=== PATIENT | male | born 1995 | race Two or more races ===

== ENCOUNTER 2024-12-25 17:01 | Inpatient (IN) | payer BC, MEDICAID ==
[~2024-12-25] VITALS: Ht 182.9 cm; Wt 121.4 kg
--- NOTE | 2024-12-25 17:48 | DVH ---
CHEST RADIOGRAPH Indication: chest pain Technique: XY CHEST PORTABLE Comparison: None FINDINGS: The cardiac silhouette is unremarkable. The lungs demonstrate right basilar airspace opacities. The pulmonary vasculature is unremarkable. There is no pleural effusion. There is no pneumothorax. IMPRESSION: Right basilar airspace opacification.
[2024-12-25 17:51] LABS: Hematocrit 48.9 % (41.0-53.0); Hemoglobin 16.7 g/dL (13.5-17.5); Mean Corpuscular Hemoglobin 29.3 pg (28.0-32.0); Mean Corpuscular Volume 86.0 fL (80.0-100.0); Nucleated Red Blood Cells % 0.1 %
[2024-12-25 18:03] LABS: Chloride 100 mmol/L (98-107); Potassium 4.1 mmol/L (3.5-5.1); Sodium 140 mmol/L (136-145)
[2024-12-25 18:04] LABS: Anion Gap 9 (5-15); Carbon Dioxide 31 mmol/L (20-31)
[2024-12-25 18:05] LABS: Calcium 9.8 mg/dL (8.7-10.4)
[2024-12-25 18:09] LABS: BUN/Creatinine Ratio 10.9 (10.0-20.0); Blood Urea Nitrogen 13 mg/dL (9-23); Glucose 98 mg/dL (74-106)
--- NOTE | 2024-12-25 18:13 | ED.PDOC ---
History of Present Illness HPI Comments 29-year-old male presents to the ER with a chief complaint of chest pain. Patient reports on having had left-sided chest pain which started yesterday which was small but worsened this morning at work. Denies any other symptoms at this time. Chief Complaint: Chest Pain Time Seen by MD: 17:42 Allergies: Coded Allergies: NO KNOWN ALLERGIES (Unverified , 12/25/24) Information Source: Patient Mode of Arrival: Ambulatory Severity: Moderate Timing: Hours Duration: Since onset, Hours Prehospital treatment: None Past Medical History PAST MEDICAL HISTORY: Denies Surgical History: Denies all surgeries Family History Family History: Reviewed,noncontributory to illness, Unknown Social History Smoker: Non-Smoker Alcohol: Denies ETOH Use Drugs: Denies Drug Use Lives In: Home Constitutional: denies: chills, diaphoresis, fatigue, fever, malaise, sweats, weakness, others EENTM: denies: blurred vision, double vision, ear bleeding, ear discharge, ear drainage, ear pain, ear ringing, eye pain, eye redness, hearing loss, mouth pain, mouth swelling, nasal discharge, nose bleeding, nose congestion, nose pain, photophobia, tearing, throat pain, throat swelling, voice changes, others Respiratory: denies: cough, hemoptysis, orthopnea, SOB at rest, shortness of breath, SOB with excertion, stridor, wheezing, others Cardiovascular: reports: chest pain; denies: dizzy spells, diaphoresis, Dyspnea on exertion, edema, irregular heart beat, left arm pain, lightheadedness, p alpitations, PND, syncope, others Gastrointestinal: denies: abdomen distended, abdominal pain, blood streaked bowels, constipated, diarrhea, dysphagia, difficulty swallowing, hematemesis, melena, nausea, poor appetite, poor fluid intake, rectal bleeding, rectal pain, vomiting, others Genitourinary: denies: burning, dysuria, flank pain, frequency, hematuria, incontinence, penile discharge, penile sore, pain, testicle pain, testicle swelling, urgency, others Neurological: denies: dizziness, fainting, headache, left sided numbness, left sided weakness, numbness, paresthesia, pre-existing deficit, right sided numbness, right sided weakness, seizure, speech problems, tingling, tremors, weakness, others Musculoskeletal: denies: back pain, gout, joint pain, joint swelling, muscle pain, muscle stiffness, neck pain, others Integumetry: denies: bruises, change in color, change in hair/nails, dryness, laceration, lesions, lumps, rash, wounds, others Allergic/Immunocompromised: denies: Difficulty Healing, Frequent Infections, Hives, Itching, others Hematologic/Lymphatic: denies: anemia, blood clots, easy bleeding, easy b ruising, swollen glands, others Endocrine: denies: excessive hunger, excessive sweating, excessive thirst, excessive urination, flushing, intolerance to cold, intolerance to heat, unexplained weight gain, unexplained weight loss, others Psychiatric: denies: anxiety, bipolar disorder, depression, hopeless, panic disorder, schizophrenia, sleepless, suicidal, others All Other Systems: Reviewed and Negative Physical Exam General Appearance: No Apparent Distress, Normal HEENT: Normal ENT Inspection, Pharynx Normal, TMs Normal Neck: Full Range of Motion, Non-Tender, Normal, Normal Inspection Respiratory: Chest Non-Tender, Lungs Clear, No Accessory Muscle Use, No Respiratory Distress, Normal Breath Sounds Cardiovascular: No Edema, No JVD, No Murmur, No Gallop, Normal Peripheral Pulses, Regular Rate/Rhythm Breast Exam: Deferred Gastrointestinal: No Organomegaly, Non Tender, No Pulsatile Mass, Normal Bowel Sounds, Soft Genitalia: Deferred Pelvic: Deferred Rectal: Deferred Extremities: No calf tenderness, Normal capillary refill, Normal inspection, Normal range of motion, Non-tender, No pedal edema Musculoskeletal : Apperance: Normal 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 Was a procedure done?: No EKG EKG : Pulse Rate (adult): 94 [place]: Normal Cardiac Rhythm: NSR Block: None Hypertrophy: None ST: Normal Differential Dx Considerations may include: ACS, doubt abnormalities, costochondritis, pericarditis X-Ray, Labs, Meds, VS Vital Signs Date Time Temp Pulse Resp B/P (MAP) Pulse Ox O2 Delivery O2 Flow Rate FiO2 12/25/24 18:13 94 12/25/24 17:29 94 12/25/24 17:09 81 12/25/24 17:02 97.0 86 15 153/104 96 97.0 Lab Test 12/25/24 18:29 12/25/24 17:36 Range/Units Troponin I High Sensitivity Pending 13 </=54 ng/L White Blood Count 7.4 4.4-10.8 10^3/uL Red Blood Count 5.69 4.5-5.90 10^6/uL Hemoglobin 16.7 13.5-17.5 g/dL Hematocrit 48.9 41.0-53.0 % Mean Corpuscular Volume 86.0 80.0-100.0 fL Mean Corpuscular Hemoglobin 29.3 28.0-32.0 pg Mean Corpuscular Hemoglobin Concent 34.1 32.0-36.0 g/dL Red Cell Distribution Width 14.0 11.8-14.3 % Platelet Count 309 140-450 10^3/uL Mean Platelet Volume 7.4 6.9-10.8 fL Neutrophils (%) (Auto) 57.2 37.0-80.0 % Lymphocytes (%) (Auto) 30.1 10.0-50.0 % Monocytes (%) (Auto) 7.6 0.0-12.0 % Eosinophils (%) (Auto) 4.5 0.0-7.0 % Basophils (%) (Auto) 0.6 0.0-2.0 % Neutrophils # (Auto) 4.2 1.6-8.6 10 ^3/uL Lymphocytes # (Auto) 2.2 0.4-5.4 10 ^3/uL Monocytes # (Auto) 0.6 0-1.3 10 ^3/uL Eosinophils # (Auto) 0.3 0-0.8 10 ^3/uL Basophils # (Auto) 0 0-0.2 10 ^3/uL Nucleated Red Blood Cells 0.1 % Sodium Level 140 136-145 mmol/L Potassium Level 4.1 3.5-5.1 mmol/L Chloride Level 100 98-107 mmol/L Carbon Dioxide Level 31 20-31 mmol/L Anion Gap 9 5-15 Blood Urea Nitrogen 13 9-23 mg/dL Creatinine 1.19 0.700-1.30 mg/dL Glomerular Filtration Rate Calc 86 >90 mL/min BUN/Creatinine Ratio 10.9 10.0-20.0 Serum Glucose 98 74-106 mg/dL Calcium Level 9.8 8.7-10.4 mg/dL Images Reviewed?: Images reviewed and evaluated by me Time of 1ST Reevaluation: 18:12 Reevaluation 1ST: Unchanged Patient Education/Counseling: Diagnosis, Treatment, Prognosis Family Education/Counseling: No Family Present SEPSIS Sepsis Screen Date sepsis recognized/suspect: Dec 25, 2024 Time Sepsis recognized/suspect: 1703 Recent Procedure: No On Antibiotic Therapy: No Respiratory Rate >20: No Heart Rate >90: No Temp<36 C (96.8 F) or >38.3 C: No SBP <90 or MAP <65 mmHG: No New Acute Mental Status Change: No Is the patient on CPAP, BIPAP,: No Physician Orders Troponin-I Hs (12/25/24 18:05) Troponin-I Hs (12/25/24 20:05) Electrocardigram (12/25/24 18:05) Electrocardigram (12/25/24 20:05) Chest Portable (12/25/24 17:13) Vital Signs Date Time Temp Pulse Resp B/P (MAP) Pulse Ox O2 Delivery O2 Flow Rate FiO2 12/25/24 18:13 94 12/25/24 17:29 94 12/25/24 17:09 81 12/25/24 17:02 97.0 86 15 153/104 96 97.0 Laboratory Tests Test 12/25/24 17:36 White Blood Count 7.4 10^3/uL (4.4-10.8) Departure 1 Departure Time of Disposition: 18:51 (Patient with intractable chest pain. EKG some abnormalities. Troponin was patient is not septic. We will empirically give patient fluids and antibiotics and admit patient for further cardiac workup) Impression: Primary Impression: Pneumonia Additional Impression: Acute chest pain Disposition: ADMITTED INPATIENT Admit to: [facility] Condition: Guarded Critical Care Note Critical Care Time?: No Stability Stability form required: No Heart Score Heart Score: Heart Score Response (Comments) Value History Moderate Suspicious [address]-Deviation 2 Age <45 0 Risk Factors No known risk factors 0 Troponin Normal limit 0 Total 3 I personally scribed for JAYSHREE GANNON MD ([email or web address]) on 12/25/24 at 18:13. Electronically submitted by Eddie Montana ([email or web address]). JAYSHREE GANNON MD Dec 25, 2024 18:13
--- NOTE | 2024-12-25 18:36 | ECG ---
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
--- NOTE | 2024-12-25 19:09 | ECG ---
[facility] Test Date: 2024-12-25 Test Time: 17:09:59 Pat Name: KATERYNA LAU Department: ED Room: [address] [place] [address] Gender: M Inspector Scales: TRES : 1995 Requested By: JAYSHREE GANNON Order Number: [id number] Reading MD: Daniele Guevara Measurements Intervals [place] Rate: 81 P: 138 MT: 161 QRS: 146 QRSD: 100 T: -17 QT: 375 QTc: 436 Interpretive Statements Right and left arm electrode reversal, interpretation assumes no reversal Sinus or ectopic atrial rhythm Probable left atrial enlargement Inferior infarct, age indeterminate Lateral infarct, acute Borderline ST elevation, anterior leads Electronically Signed On 12-26-2024 11:45:28 PST by Daniele Guevara Please click the below link to view image of tracing.
--- NOTE | 2024-12-25 19:59 | ECG ---
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
[2024-12-25] MEDS ORDERED: MORPHINE SULFATE INJ 2 MG/ml SYRG IV PRN (20:15)
[2024-12-25] MEDS ORDERED: NITROGLYCERIN 0.4 MG SL TAB SL PRN (20:15)
[2024-12-25] MEDS ORDERED: ACETAMINOPHEN 325 MG TAB PO PRN (20:15)
[2024-12-25] MEDS ORDERED: HYDROcodone-ACET 5/325MG TAB PO PRN (20:15)
[2024-12-25] MEDS ORDERED: TEMAZEPAM 15 MG CAP PO PRN (20:15)
[2024-12-25] MEDS ORDERED: DOCUSATE SOD 100 MG CAP PO PRN (20:15)
[2024-12-25] MEDS ORDERED: ONDANSETRON HCL 4 MG/2 ML VIAL IV PRN (20:15)
--- NOTE | 2024-12-25 20:15 | DVHHP2 ---
Admitting Diagnosis: Chest pain History of Present Illness 29 yo male patient c/o left sided chest pain that has been gradually worsening. Patient denies any other symptoms. While in the emergency department the patient was evaluated by the provider, As per provider: Labs, vital signs, and imagining monitored. Patient will be admitted for further evaluation and treatment. I discussed admission with the patient/family and is in agreement to treatment plan. Allergies: Coded Allergies: NO KNOWN ALLERGIES (Unverified , 12/25/24) Home Meds Reported Medications Acetaminophen (Acetaminophen) 325 Mg Tab, 500 MG PO DAILY PRN for MILD PAIN for 30 Days, MG 0 Refills 12/25/24 Cetirizine Hcl (Zyrtec Allergy) 10 Mg Cap, 10 MG PO, CAP 12/25/24 Current Medications Current Medications Medications (Trade) Dose Ordered Sig/Cayden Route PRN Reason Start Time Stop Time Status Last Admin Enoxaparin Sodium (Lovenox) 40 mg DAILY SC 12/26/24 10:00 Pantoprazole Sodium (Protonix) 40 mg DAILY IV 12/26/24 10:00 12/26/24 10:06 Azithromycin (Zithromax Suspension) 500 mg DAILY GT 12/26/24 10:00 12/26/24 14:40 DC Albuterol (Ventolin Medneb) 2.5 mg Q4HPRN PRN NEB SHORTNESS OF BREATH 12/26/24 07:15 Ipratropium [place] (Atrovent Medneb) 0.5 mg Q4HPRN PRN NEB SHORTNESS OF BREATH 12/26/24 07:15 Azithromycin (Zithromax Suspension) 500 mg DAILY PO 12/26/24 14:45 Review of Systems Constitutional: denies chills, denies fever, denies malaise Eyes: denies eye pain, denies vision change ENT: denies ear pain, denies headache, denies nasal congestion, denies painful swallowing, denies voice change Cardiovascular: denies chest pain, denies edema, denies orthopnea, denies palpitations, denies paroxysmal nocturnal dyspnea Respiratory: denies cough, denies shortness of breath Gastrointestinal: denies constipation, denies diarrhea, denies nausea, denies vomiting Genitourinary: denies dysuria, denies frequent urination, denies urethral discharge Musculoskeletal: denies back pain, denies joint pain, denies muscle pain Skin: denies bruising, denies itching, denies rash Neurological: denies focal weakness, denies headache, denies sensory changes Psychiatric: denies anxiety, denies depression Endocrine: denies polydipsia, denies polyuria Hematologic/Lymphatic: denies easy bleeding, denies easy bruising, denies enlarged lymph nodes Allergic/Immunologic: denies allergy, denies hives Vital Signs Vital Signs Date Time Temp Pulse Resp B/P (MAP) Pulse Ox O2 Delivery O2 Flow Rate FiO2 12/26/24 21:21 97 Room Air 0.0 12/26/24 21:21 21 12/26/24 20:53 96 18 128/87 12/26/24 20:44 97.9 97.9 Physical Exam General Appearance: alert, no distress HEENT: EOMI, PERRLA, normal external inspect of ears, no icterus, no nasal drainage Neck: no carotid bruit, no jugular venous distention (JVD), no lymphadenopathy Chest: normal thorax Respiratory: clear to auscultation, normal air movement Cardiovascular: regular rate and rhythm, no diastolic murmur, no jugular venous distention (JVD), no rub, no systolic murmur Abdominal: soft, no hepatomegaly, no mass, no splenomegaly, no tenderness Genitourinary: grossly normal external Musculoskeletal: no joint tenderness, no swelling Extremities: normal pulses, no calf tenderness, no clubbing, no cyanosis, no edema Skin: no bruising, no jaundice, no rash Neurological: alert, No focal deficit SEPSIS Sepsis Screen Date sepsis recognized/suspect: Dec 25, 2024 Time Sepsis recognized/suspect: 1703 Recent Procedure: No On Antibiotic Therapy: No Respiratory Rate >20: No Heart Rate >90: No Temp<36 C (96.8 F) or >38.3 C: No SBP <90 or MAP <65 mmHG: No New Acute Mental Status Change: No Is the patient on CPAP, BIPAP,: No Physician Orders Electrocardigram (12/25/24 17:05) Electrocardigram (12/25/24 18:05) Electrocardigram (12/25/24 20:05) Chest Portable (12/25/24 17:13) Blood Culture (12/25/24 18:50) Admit (12/25/24 20:12) Code Status (12/25/24 20:12) Oxygen Per Hour (12/25/24 20:12) Hydrocodone-Acet 5/325mg Tab ([place] 5/32 (12/25/24 20:15) Temazepam (Restoril) (12/25/24 20:15) Ondansetron Hcl (Zofran) (12/25/24 20:15) Docusate Sodium Capsule (Colace Capsule) (12/25/24 20:15) Enoxaparin Sodium (Lovenox) (12/26/24 10:00) Cardiac Diet-2gna,Lofat,Lochol (12/26/24 Breakfast) Condition: Fair (12/25/24 20:12) Acetaminophen Tablet (Tylenol Tablet) (12/25/24 20:15) Morphine Sulfate Injection (12/25/24 20:15) Sequential Compression Device (12/25/24 ) *Consult Dr. Rajesh Bennett (12/25/24 20:12) Pantoprazole (Protonix) (12/26/24 10:00) Nitroglycerin Sublingual (Ntrostat Subli (12/25/24 20:15) Morphine Sulfate Injection (12/25/24 20:15) Stat Ekg For Chest Pain (12/25/24 20:12) Notify Md Of Changes From Base (12/25/24 20:12) Kitchen Hand For 24 Hours (12/25/24 20:12) Emergency Dysrhythmia Protocol (12/25/24 20:12) Rhythm Strips Once Every Shift (12/25/24 20:12) Oxygen By Nasal Cannula (12/25/24 20:12) Drug Screen (12/26/24 07:15) Albuterol Medneb (Ventolin Medneb) (12/26/24 07:15) Ipratropium Medneb (Atrovent Medneb) (12/26/24 07:15) Echo 2d Mode Cardiac Dop (12/26/24 20:12) Azithromycin Suspension (Zithromax Suspe (12/26/24 14:45) Vital Signs Date Time Temp Pulse Resp B/P (MAP) Pulse Ox O2 Delivery O2 Flow Rate FiO2 12/26/24 21:21 97 Room Air 0.0 12/26/24 21:21 97 Room Air* 0 21 12/26/24 20:53 96 18 128/87 12/26/24 20:44 97.9 100 18 157/91 (113) 98 97.9 12/26/24 20:23 103 18 146/98 12/26/24 20:00 100 98 Room Air* 0 21 12/26/24 17:00 98.0 102 20 152/90 (110) 94 98.0 12/26/24 13:00 97.9 73 18 115/69 (84) 95 97.9 12/26/24 09:00 97.9 94 20 132/88 (103) 94 97.9 12/26/24 08:40 98.1 94 16 109/61 98 98.1 12/26/24 08:33 98 Room Air 0.0 12/26/24 08:33 98 Room Air* 0 21 12/26/24 08:00 94 12/26/24 08:00 Room Air* 0 21 12/26/24 05:00 98.1 72 12 109/61 (77) 98 98.1 12/26/24 01:00 97.7 78 18 130/85 (100) 94 97.7 12/25/24 23:11 Room Air* 0 21 12/25/24 22:40 97.6 94 17 147/110 (122) 99 97.6 12/25/24 21:33 75 16 97 Room Air* 0 21 12/25/24 21:28 98.0 76 16 145/102 (116) 97 98.0 12/25/24 19:36 76 12/25/24 18:13 94 12/25/24 17:29 94 12/25/24 17:09 81 12/25/24 17:02 97.0 86 15 153/104 96 97.0 Laboratory Tests Test 12/25/24 17:36 12/25/24 19:00 12/26/24 05:00 White Blood Count 7.4 10^3/uL (4.4-10.8) 7.0 10^3/uL (4.4-10.8) Lactic Acid Level 1.7 mmol/L (0.4-2.0) Medications Medications Dose Ordered Sig/Cayden Route Start Time Stop Time Status Last Admin Dose Admin Pantoprazole Sodium 40 mg DAILY IV 12/26/24 10:00 11/20/25 10:06 Results Labs Test 12/26/24 05:00 12/25/24 20:24 12/25/24 19:00 Range/Units White Blood Count 7.0 4.4-10.8 10^3/uL Red Blood Count 5.29 4.5-5.90 10^6/uL Hemoglobin 15.4 13.5-17.5 g/dL Hematocrit 45.8 41.0-53.0 % Mean Corpuscular Volume 86.6 80.0-100.0 fL Mean Corpuscular Hemoglobin 29.1 28.0-32.0 pg Mean Corpuscular Hemoglobin Concent 33.6 32.0-36.0 g/dL Red Cell Distribution Width 13.6 11.8-14.3 % Platelet Count 275 140-450 10^3/uL Mean Platelet Volume 7.6 6.9-10.8 fL Neutrophils (%) (Auto) 43.1 37.0-80.0 % Lymphocytes (%) (Auto) 42.3 10.0-50.0 % Monocytes (%) (Auto) 8.5 0.0-12.0 % Eosinophils (%) (Auto) 5.7 0.0-7.0 % Basophils (%) (Auto) 0.4 0.0-2.0 % Neutrophils # (Auto) 3.0 1.6-8.6 10 ^3/uL Lymphocytes # (Auto) 3.0 0.4-5.4 10 ^3/uL Monocytes # (Auto) 0.6 0-1.3 10 ^3/uL Eosinophils # (Auto) 0.4 0-0.8 10 ^3/uL Basophils # (Auto) 0 0-0.2 10 ^3/uL Nucleated Red Blood Cells 0.0 % Sodium Level 141 136-145 mmol/L Potassium Level 3.9 3.5-5.1 mmol/L Chloride Level 104 98-107 mmol/L Carbon Dioxide Level 27 20-31 mmol/L Anion Gap 10 5-15 Blood Urea Nitrogen 16 9-23 mg/dL Creatinine 0.98 0.700-1.30 mg/dL Glomerular Filtration Rate Calc 108 >90 mL/min BUN/Creatinine Ratio 16.3 10.0-20.0 Serum Glucose 83 74-106 mg/dL Calcium Level 9.4 8.7-10.4 mg/dL Total Bilirubin 0.4 0.2-1.0 mg/dL Aspartate Amino Transferase (AST) 42 H 13-40 U/L Alanine Aminotransferase (ALT) 141 H 7-40 U/L Alkaline Phosphatase 78 46-116 U/L B-Type Natriuretic Peptide 4.54 0-100 pg/mL Total Protein 6.9 5.7-8.2 g/dL Albumin 4.2 3.2-4.8 g/dL Triglycerides Level 215 H < 150 mg/dL Cholesterol Level 165 < 200 mg/dL LDL Cholesterol 105 H < 100 mg/dL HDL Cholesterol 38 L 40-59 mg/dL Troponin I High Sensitivity 13 </=54 ng/L Lactic Acid Level 1.7 0.4-2.0 mmol/L Microbiology Date/Time Source Procedure Growth Status 12/25/24 19:15 Blood Blood Culture - Preliminary NO GROWTH AFTER 24 HOURS OF INCUBATION. Resulted Plan 1. Atypical chest pain Monitor, cardiology consult, trend troponin echocardiogram 2. Upper viral syndrome Monitor, IV abx 3. Morbid Obesity Monitor, PPI, DVT prophylaxis Plan discussed with: Patient, Other KHOI GAMBLE NP Dec 25, 2024 20:15
[2024-12-25 21:33] VITALS: PULSE 75; RESP 16; O2SAT 97
[2024-12-25] MEDS: CEFEPIME 2GM/50ML NS 50 ML IV ONE (22:01)
[2024-12-25] MEDS: SODIUM CHLORIDE 0.9% 1,000 ML IV ONE (22:01)
[2024-12-25] MEDS: KETOROLAC TROMETH 30 MG/ML 1ML VIAL IV ONE (22:02)
[2024-12-25] MEDS: ACETAMINOPHEN 325 MG TAB PO ONE (22:02)
[2024-12-25 22:40] VITALS: BP 147/110; PULSE 94; RESP 17; TEMP 97.6; O2SAT 99
[2024-12-25] MEDS ORDERED: ACET-1881 PO (23:37)
[2024-12-25] MEDS ORDERED: CETI10CA PO (23:37)
[2024-12-26] VITALS (12 sets, daily range): BP systolic 109–157; BP diastolic 61–105; PULSE 72–102; RESP 12–20; TEMP 97.7–98.1; O2SAT 94–98
[2024-12-26 06:04] LABS: Hematocrit 45.8 % (41.0-53.0); Hemoglobin 15.4 g/dL (13.5-17.5); Mean Corpuscular Hemoglobin 29.1 pg (28.0-32.0); Mean Corpuscular Volume 86.6 fL (80.0-100.0); Nucleated Red Blood Cells % 0.0 %
[2024-12-26 06:41] LABS: Alkaline Phosphatase 78 U/L (46-116); Anion Gap 10 (5-15); BUN/Creatinine Ratio 16.3 (10.0-20.0); Blood Urea Nitrogen 16 mg/dL (9-23); Calcium 9.4 mg/dL (8.7-10.4); Carbon Dioxide 27 mmol/L (20-31); Chloride 104 mmol/L (98-107); Glucose 83 mg/dL (74-106); Potassium 3.9 mmol/L (3.5-5.1); Sodium 141 mmol/L (136-145); Total Protein 6.9 g/dL (5.7-8.2)
[2024-12-26 06:42] LABS: Albumin 4.2 g/dL (3.2-4.8); Bilirubin, Total 0.4 mg/dL (0.2-1.0)
[2024-12-26 06:45] LABS: Alanine Aminotransferase 141 U/L (7-40)
[2024-12-26] MEDS ORDERED: IPRATROPIUM BROM 0.5 MG/2.5ML INH SOL NEB PRN (07:15)
[2024-12-26] MEDS ORDERED: ALBUTEROL SULF 2.5 MG/0.5ML(0.5%) NEB SOLN NEB PRN (07:15)
--- NOTE | 2024-12-26 07:18 | DVHPN2 ---
Progress Note - Dictate Date Seen: Dec 26, 2024 Medical Necessity Reason Pt with a Central, PICC or Fol: No vital signs Vital Sign Date Time Temp Pulse Resp B/P (MAP) Pulse Ox O2 Delivery O2 Flow Rate FiO2 12/26/24 05:00 98.1 72 12 109/61 (77) 98 98.1 12/25/24 23:11 Room Air* 0 21 Total Intake and Output 12/25/24 12/25/24 12/26/24 15:00 23:00 07:00 Intake Total 1712.5 ml Balance 1712.5 ml medications Current Medications Medications Dose Ordered Sig/Cayden Route Start Time Stop Time Status Last Admin Dose Admin Acetaminophen/ Hydrocodone Bitart 1 tab Q4HP PRN PO 12/25/24 20:15 Temazepam 15 mg QHSP PRN PO 12/25/24 20:15 Ondansetron HCl 4 mg Q4HP PRN IV 12/25/24 20:15 Docusate Sodium 100 mg BIDPRN PRN PO 12/25/24 20:15 Enoxaparin Sodium 40 mg DAILY SC 12/26/24 10:00 Acetaminophen 650 mg Q6HP PRN PO 12/25/24 20:15 Morphine Sulfate 2 mg Q4HPRN PRN IV 12/25/24 20:15 Pantoprazole Sodium 40 mg DAILY IV 12/26/24 10:00 Nitroglycerin 0.4 mg Q5MINP PRN SL 12/25/24 20:15 Morphine Sulfate 2 mg Q30M PRN IV 12/25/24 20:15 objective General Appearance: alert, no distress HEENT: EOMI, PERRLA, normal external inspect of ears, no icterus, no nasal drainage Neck: no carotid bruit, no jugular venous distention (JVD), no lymphadenopathy Chest: normal thorax Respiratory: clear to auscultation, normal air movement Cardiovascular: regular rate and rhythm, no diastolic murmur, no jugular venous distention (JVD), no rub, no systolic murmur Abdominal: soft, no hepatomegaly, no mass, no splenomegaly, no tenderness Genitourinary: grossly normal external Musculoskeletal: no joint tenderness, no swelling Extremities: normal pulses, no calf tenderness, no clubbing, no cyanosis, no edema Skin: no bruising, no jaundice, no rash Neurological: alert, No focal deficit laboratory and microbiology Laboratory Tests 12/26/24 05:00 Test 12/26/24 05:00 Range/Units Serum Glucose 83 74-106 mg/dL Problem List 1. Atypical chest pain Monitor, cardiology consult, trend troponin echocardiogram 2. Upper viral syndrome Monitor, IV abx 3. Morbid Obesity Monitor, PPI, DVT prophylaxis Assessment/Plan Subjective: Patient is awake and alert. Objective: Patient is still complaining of intermittent chest pain. Patient was seen by cardiology. Troponin levels are negative. Chest X-ray shows some opacity to the right upper lobe. Patient states he has no cough and he has been afebrile. Patient may have residual upper viral syndrome. Plan: Continue antibiotics. Waiting for cardiac clearance with echocardiogram. Continue discharge planning. Plan discussed with: Patient, Other KHOI GAMBLE NP Dec 26, 2024 07:18
--- NOTE | 2024-12-26 09:28 | DVHINCON2 ---
Date of service: Dec 26, 2024 History of Present Illness HPI Patient is a 29-year-old gentleman who presented with 2 days of chest discomfort. Mentions that the pain remained constant and mild in the left chest area. Did have occasions of sharp temporarily discomforts at the same site. Denies any exertional component to the chest discomfort. Denies palpitation. Denies shortness of breath. Denies radiation of the pain. No accompanying symptom. No dizziness. Cardiology is involved for cardiac aspects of care. Denies previous cardiac history. Denies previous cardiac evaluation. Mentions that for the past week he has usual seasonal allergy has been acting out but he has not taken any medications for it. Home Meds Reported Medications Acetaminophen (Acetaminophen) 325 Mg Tab, 500 MG PO DAILY PRN for MILD PAIN for 30 Days, MG 0 Refills 12/25/24 Cetirizine Hcl (Zyrtec Allergy) 10 Mg Cap, 10 MG PO, CAP 12/25/24 Past Medical History Others Past medical history only involves seasonal allergies for which he usually takes Zyrtec but has not taken it in the past week. Nonsmoker. Denies drug abuse. Does drink alcohol (does have binge drinking). Drinks beer twice a week and each time 8-10 bottles. No relevant family history. 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 Family History: No pertinent Hx Patient Family History: Patient reports no known family medical history. Smoker: No Hx (Negative) Alocohol: Moderate Drugs: None Lives with: With family Review of Systems Constitutional: No symptom reported Ears, Nose, & Throat: No symptom reported Cardiovascular: Chest Pain All Other Systems 14 point review of system was performed. Relevant findings as per above and as per HPI. Otherwise negative. H&P Exam Vital Signs Vital Signs Date Time Temp Pulse Resp B/P (MAP) Pulse Ox O2 Delivery O2 Flow Rate FiO2 12/26/24 08:40 98.1 94 16 109/61 98 98.1 12/25/24 23:11 Room Air* 0 21 General Appeara: Well developed Head Exam: Normal inspection Eye Exam: bilateral eye PERRL Mouth: Normal Inspection Pulmonary/Respiratory: Lungs clear Cardiovascular/Chest: Regular rate, Systolic murmur Peripheral Pulses: 2+ carotid (R), 2+ carotid (L), 2+ femoral (R), 2+ femoral (L), 2+ dorsalis pedis (R), 2+ dorsalis pedis (L), 2+ Radial (R), 2+ Radial (L) Abdominal Exam: Normal bowel sounds, Soft Neuro/Mental St: Alert, Oriented Appearance: Appropriate appearance Eye contact/ Speech: Cooperative Labs/Xrays Labs Test 12/26/24 05:00 12/25/24 20:24 12/25/24 19:00 Range/Units White Blood Count 7.0 4.4-10.8 10^3/uL Red Blood Count 5.29 4.5-5.90 10^6/uL Hemoglobin 15.4 13.5-17.5 g/dL Hematocrit 45.8 41.0-53.0 % Mean Corpuscular Volume 86.6 80.0-100.0 fL Mean Corpuscular Hemoglobin 29.1 28.0-32.0 pg Mean Corpuscular Hemoglobin Concent 33.6 32.0-36.0 g/dL Red Cell Distribution Width 13.6 11.8-14.3 % Platelet Count 275 140-450 10^3/uL Mean Platelet Volume 7.6 6.9-10.8 fL Neutrophils (%) (Auto) 43.1 37.0-80.0 % Lymphocytes (%) (Auto) 42.3 10.0-50.0 % Monocytes (%) (Auto) 8.5 0.0-12.0 % Eosinophils (%) (Auto) 5.7 0.0-7.0 % Basophils (%) (Auto) 0.4 0.0-2.0 % Neutrophils # (Auto) 3.0 1.6-8.6 10 ^3/uL Lymphocytes # (Auto) 3.0 0.4-5.4 10 ^3/uL Monocytes # (Auto) 0.6 0-1.3 10 ^3/uL Eosinophils # (Auto) 0.4 0-0.8 10 ^3/uL Basophils # (Auto) 0 0-0.2 10 ^3/uL Nucleated Red Blood Cells 0.0 % Sodium Level 141 136-145 mmol/L Potassium Level 3.9 3.5-5.1 mmol/L Chloride Level 104 98-107 mmol/L Carbon Dioxide Level 27 20-31 mmol/L Anion Gap 10 5-15 Blood Urea Nitrogen 16 9-23 mg/dL Creatinine 0.98 0.700-1.30 mg/dL Glomerular Filtration Rate Calc 108 >90 mL/min BUN/Creatinine Ratio 16.3 10.0-20.0 Serum Glucose 83 74-106 mg/dL Calcium Level 9.4 8.7-10.4 mg/dL Total Bilirubin 0.4 0.2-1.0 mg/dL Aspartate Amino Transferase (AST) 42 H 13-40 U/L Alanine Aminotransferase (ALT) 141 H 7-40 U/L Alkaline Phosphatase 78 46-116 U/L B-Type Natriuretic Peptide 4.54 0-100 pg/mL Total Protein 6.9 5.7-8.2 g/dL Albumin 4.2 3.2-4.8 g/dL Troponin I High Sensitivity 13 </=54 ng/L Lactic Acid Level 1.7 0.4-2.0 mmol/L Assessment/Plan Plan Patient is a 29-year-old gentleman who presented with 2 days of chest discomfort. Mentions that the pain remained constant and mild in the left chest area. Did have occasions of sharp temporarily discomforts at the same site. Denies any exertional component to the chest discomfort. Denies palpitation. Denies shortness of breath. Denies radiation of the pain. No accompanying symptom. No dizziness. Cardiology is involved for cardiac aspects of care. Denies previous cardiac history. Denies previous cardiac evaluation. Mentions that for the past week he has usual seasonal allergy has been acting out but he has not taken any medications for it. Healthy looking gentleman. Not in acute distress. No JVD. Not using accessory muscles of breathing. No goiter. No carotid bruit. Lungs are clear to auscultation. Cardiac: Regular, no thrill/gallop. Abdomen is soft. There was no gross mass/hepatomegaly. Bowel sound is positive. No peripheral edema. Dorsalis pedis is 2+ bilateral. There was no gross lateralized neurologic deficit. Past medical history only involves seasonal allergies for which he usually takes Zyrtec but has not taken it in the past week. Nonsmoker. Denies drug abuse. Does drink alcohol (does have binge drinking). Drinks beer twice a week and each time 8-10 bottles. No relevant family history. 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 Creatinine: 1.19 - 0.98 Potassium: 4.1 - 3.9 Troponin (high sensitive): 13 - 12 - 13 BNP: 4.54 Chest x-ray revealed: IMPRESSION: Right basilar airspace opacification. EKG reveals sinus rhythm with nonspecific ST-T changes Tele reveals sinus rhythm Patient is a 29-year-old gentleman who presented with atypical chest discomfort. Serial high sensitive troponin has been negative. EKG has been non-specific. Does have baseline good functional capacity. Denies relevant family history. ACS is less likely and not considered. Echocardiogram for further risk stratification is advised. If echocardiogram is nonrevealing, outpatient exercise treadmill stress test is suggested for further risk stratification. Chest x-ray questions right basilar airspace opacification. URI could have contributed to the clinical picture? Atypical chest pain Seasonal allergy URI/bronchitis? Cardiac suggestion for management: Manage on telemetry Follow-up electrolytes and kidney function tests and correct abnormalities Echocardiogram If Echocardiogram is nonrevealing, outpatient exercise treadmill stress test is suggested for further risk stratification (office contact number/business card was given to the patient) Evaluation and management of URI/bronchitis as per primary team Lifestyle and risk factor modification Further evaluation and management depends on the above and clinical course Thank you for consultation A total of 75 minutes was spent reviewing the patient record, examining the patient, making a diagnostic and therapeutic plan, discussing this plan with medical personnel, following up on diagnostic studies and following the patient for clinical stability excluding any and all procedures. At least 50% of this time was spent in direct, [id number] contact. Thank you for allowing me to participate in this patient's care. Further recommendations will depend on patient's clinical course. Please do not hesitate to contact me if you have any questions or concerns. This medical document was created using electronic medical record system with [employer] dictation system. Although this document has been carefully reviewed, there may still be some phonetic and typographical errors. These areas are purely typographical due to the imperfection of the software programs, and do not reflect any compromise in the patient's medical care. Plan discussed with: Patient, Other (Nurse) KRISTOPHER BRAY MD Dec 26, 2024 09:28
[2024-12-26] MEDS: AZITHROMYCIN 200 MG/5 ML ORAL SUSP GT SCH (09:57)
[2024-12-26] MEDS: ENOXAPARIN SOD 40 MG/0.4 ML SYRINGE SC SCH (10:00)
[2024-12-26] MEDS: PANTOPRAZOLE 40 MG/10 ML VIAL INJ IV SCH (10:06)
[2024-12-26 12:41] LABS: Cholesterol 165 mg/dL (< 200)
[2024-12-26 12:56] LABS: Triglycerides 215 mg/dL (< 150)
[2024-12-26 13:19] LABS: HDL Cholesterol 38 mg/dL (40-59)
[2024-12-26] MEDS: AZITHROMYCIN 200 MG/5 ML ORAL SUSP PO SCH (18:56)
[2024-12-26] MEDS: MORPHINE SULFATE INJ 2 MG/ml SYRG IV PRN (20:23)
[2024-12-27] VITALS (8 sets, daily range): BP systolic 124–128; BP diastolic 73–92; PULSE 70–91; RESP 16–18; TEMP 97.7–98.3; O2SAT 94–99
--- NOTE | 2024-12-27 07:10 | DVHPN2 ---
Progress Note - Dictate Date Seen: Dec 27, 2024 Medical Necessity Reason Pt with a Central, PICC or Fol: No vital signs Vital Sign Date Time Temp Pulse Resp B/P (MAP) Pulse Ox O2 Delivery O2 Flow Rate FiO2 12/27/24 06:17 99 Room Air 0.0 12/27/24 06:17 21 12/27/24 05:00 97.7 88 18 124/87 (99) 97.7 Total Intake and Output 12/26/24 12/26/24 12/27/24 15:00 23:00 07:00 Intake Total 480 ml 800 ml Balance 480 ml 800 ml medications Current Medications Medications Dose Ordered Sig/Cayden Route Start Time Stop Time Status Last Admin Dose Admin Acetaminophen/ Hydrocodone Bitart 1 tab Q4HP PRN PO 12/25/24 20:15 Temazepam 15 mg QHSP PRN PO 12/25/24 20:15 Ondansetron HCl 4 mg Q4HP PRN IV 12/25/24 20:15 Docusate Sodium 100 mg BIDPRN PRN PO 12/25/24 20:15 Enoxaparin Sodium 40 mg DAILY SC 12/26/24 10:00 Acetaminophen 650 mg Q6HP PRN PO 12/25/24 20:15 Morphine Sulfate 2 mg Q4HPRN PRN IV 12/25/24 20:15 Pantoprazole Sodium 40 mg DAILY IV 12/26/24 10:00 12/26/24 10:06 40 MG Nitroglycerin 0.4 mg Q5MINP PRN SL 12/25/24 20:15 Morphine Sulfate 2 mg Q30M PRN IV 12/25/24 20:15 12/26/24 20:23 2 MG Albuterol 2.5 mg Q4HPRN PRN NEB 12/26/24 07:15 Ipratropium Moffett 0.5 mg Q4HPRN PRN NEB 12/26/24 07:15 Azithromycin 500 mg DAILY PO 12/26/24 14:45 laboratory and microbiology Laboratory Tests 12/26/24 05:00 Test 12/26/24 05:00 Range/Units Serum Glucose 83 74-106 mg/dL Assessment/Plan Patient is a 29-year-old gentleman who presented with 2 days of chest discomfort. Mentions that the pain remained constant and mild in the left chest area. Did have occasions of sharp temporarily discomforts at the same site. Denies any exertional component to the chest discomfort. Denies palpitation. Denies shortness of breath. Denies radiation of the pain. No accompanying symptom. No dizziness. Cardiology is involved for cardiac aspects of care. Denies previous cardiac history. Denies previous cardiac evaluation. Mentions that for the past week he has usual seasonal allergy has been acting out but he has not taken any medications for it. Healthy looking gentleman. Not in acute distress. No JVD. Not using accessory muscles of breathing. No goiter. No carotid bruit. Lungs are clear to auscultation. Cardiac: Regular, no thrill/gallop. Abdomen is soft. There was no gross mass/hepatomegaly. Bowel sound is positive. No peripheral edema. Dorsalis pedis is 2+ bilateral. There was no gross lateralized neurologic deficit. Past medical history only involves seasonal allergies for which he usually takes Zyrtec but has not taken it in the past week. Nonsmoker. Denies drug abuse. Does drink alcohol (does have binge drinking). Drinks beer twice a week and each time 8-10 bottles. No relevant family history. 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 Mentions that he goes to gym twice a week with no limitation. Creatinine: 1.19 - 0.98 Potassium: 4.1 - 3.9 Troponin (high sensitive): 13 - 12 - 13 BNP: 4.54 Chest x-ray revealed: IMPRESSION: Right basilar airspace opacification. EKG reveals sinus rhythm with nonspecific ST-T changes Tele reveals sinus rhythm Echocardiogram revealed: Left ventricle: Left ventricle is normal sized with normal systolic function. LVEF of 62%. There was no gross wall motion abnormality. Diastolic function of left ventricle was considered normal. Right ventricle was normal sized with normal systolic function. Both atria were normal sized. Aortic valve was trileaflet. There was no aortic insufficiency/stenosis. There was trace mitral/tricuspid regurgitation. Pulmonary valve was not well visualized. As there was no good tricuspid regurgitation jet, right ventricular systolic pressure could not be estimated. There was no echocardiographic evidence for pulmonary hypertension. There was minimal pericardial effusion. Patient is a 29-year-old gentleman who presented with atypical chest discomfort. Serial high sensitive troponin has been negative. EKG has been non-specific. Does have baseline good functional capacity. Denies relevant family history. ACS is less likely and not considered. Echocardiogram for further risk stratification is advised. If echocardiogram is nonrevealing, outpatient exercise treadmill stress test is suggested for further risk stratification. Chest x-ray questions right basilar airspace opacification. URI could have contributed to the clinical picture? Atypical chest pain Seasonal allergy URI/bronchitis? Cardiac suggestion for management: Manage on telemetry Follow-up electrolytes and kidney function tests and correct abnormalities Outpatient exercise treadmill stress test is suggested for further risk stratification (office contact number/business card was given to the patient) Evaluation and management of URI/bronchitis as per primary team Lifestyle and risk factor modification Further evaluation and management depends on the above and clinical course A total of 55 minutes was spent reviewing the patient record, examining the patient, making a diagnostic and therapeutic plan, discussing this plan with medical personnel, following up on diagnostic studies and following the patient for clinical stability excluding any and all procedures. At least 50% of this time was spent in direct, [id number] contact. Thank you for allowing me to participate in this patient's care. Further recommendations will depend on patient's clinical course. Please do not hesitate to contact me if you have any questions or concerns. This medical document was created using electronic medical record system with [employer] computerized dictation system. Although this document has been carefully reviewed, there may still be some phonetic and typographical errors. These areas are purely typographical due to the imperfection of the software programs, and do not reflect any compromise in the patient's medical care. Plan discussed with: Patient, Other (nurse) KRISTOPHER BRAY MD Dec 27, 2024 07:10
--- NOTE | 2024-12-27 09:04 | DVHSR ---
APPROVED REPORT EXAM: Two-dimensional and M-mode echocardiogram with Doppler and color Doppler. Blood Pressure: 124/87 mmHg INDICATION Chest Pain RISK FACTORS Height: 6', Weight: 267 DIMENSIONS LVDd 5.1 (3.8-5.7cm) LA (2D) 4.0 (1.9-4.0cm) Aortic Root 3.6 (2.0-3.7cm) LVDs 3.3 (2.5-4.0cm) LA (MM) (1.9-4.0cm) Aortic Cusp Exc 2.2 (1.5-2.0cm) EF (%) 62.0 (55-70%) Rt. Atrium 4.3 (1.9-4.0cm) Asc. Aorta 2.9 cm IVSd 1.0 (0.7-1.1cm) RV (D) 4.6 (1.8-2.4cm) PWd 1.1 (0.7-1.1cm) Mitral Valve Mitral Mitral Stenosis E wave 0.78m/s MV Mean GR. mmHg A wave 0.53m/s MV Peak GR. mmHg E/A ratio 1.5 2D MVA cm2 DECEL Time 151ms PRESS 1/2 Time ms Aortic Valve Aortic Valve Aortic Stenosis V1 0.82m/s AO Mean GR. 3mmHg V2 1.07m/s AO Peak GR. 5mmHg LVOT Diameter 2.6 (1.8-2.4cm) Doppler AMNA 4.07cm2 Pulmonic Valve V2 1.07m/s Conclusion Left ventricle: Left ventricle is normal sized with normal systolic function. LVEF of 62%. There was no gross wall motion abnormality. Diastolic function of left ventricle was considered normal. Right ventricle was normal sized with normal systolic function. Both atria were normal sized. Aortic valve was trileaflet. There was no aortic insufficiency/stenosis. There was trace mitral/tricuspid regurgitation. Pulmonary valve was not well visualized. As there was no good tricuspid regurgitation jet, right ventricular systolic pressure could not be estimated. There was no echocardiographic evidence for pulmonary hypertension. There was minimal pericardial effusion.
[2024-12-27] MEDS ORDERED: DOXY-286 PO (11:25)
--- NOTE | 2024-12-27 11:26 | DVHDS2 ---
Discharge Summary Date of Admission Dec 25, 2024 at 20:12 Date of Discharge: Dec 27, 2024 Admitting Diagnosis chest pain Labs/Diagnostic Data: Laboratory Results Test 12/26/24 05:00 12/25/24 20:24 12/25/24 19:00 White Blood Count 7.0 10^3/uL (4.4-10.8) Red Blood Count 5.29 10^6/uL (4.5-5.90) Hemoglobin 15.4 g/dL (13.5-17.5) Hematocrit 45.8 % (41.0-53.0) Mean Corpuscular Volume 86.6 fL (80.0-100.0) Mean Corpuscular Hemoglobin 29.1 pg (28.0-32.0) Mean Corpuscular Hemoglobin Concent 33.6 g/dL (32.0-36.0) Red Cell Distribution Width 13.6 % (11.8-14.3) Platelet Count 275 10^3/uL (140-450) Mean Platelet Volume 7.6 fL (6.9-10.8) Neutrophils (%) (Auto) 43.1 % (37.0-80.0) Lymphocytes (%) (Auto) 42.3 % (10.0-50.0) Monocytes (%) (Auto) 8.5 % (0.0-12.0) Eosinophils (%) (Auto) 5.7 % (0.0-7.0) Basophils (%) (Auto) 0.4 % (0.0-2.0) Neutrophils # (Auto) 3.0 10 ^3/uL (1.6-8.6) Lymphocytes # (Auto) 3.0 10 ^3/uL (0.4-5.4) Monocytes # (Auto) 0.6 10 ^3/uL (0-1.3) Eosinophils # (Auto) 0.4 10 ^3/uL (0-0.8) Basophils # (Auto) 0 10 ^3/uL (0-0.2) Nucleated Red Blood Cells 0.0 % Sodium Level 141 mmol/L (136-145) Potassium Level 3.9 mmol/L (3.5-5.1) Chloride Level 104 mmol/L (98-107) Carbon Dioxide Level 27 mmol/L (20-31) Anion Gap 10 (5-15) Blood Urea Nitrogen 16 mg/dL (9-23) Creatinine 0.98 mg/dL (0.700-1.30) Glomerular Filtration Rate Calc 108 mL/min (>90) BUN/Creatinine Ratio 16.3 (10.0-20.0) Serum Glucose 83 mg/dL (74-106) Calcium Level 9.4 mg/dL (8.7-10.4) Total Bilirubin 0.4 mg/dL (0.2-1.0) Aspartate Amino Transferase (AST) 42 U/L (13-40) Alanine Aminotransferase (ALT) 141 U/L (7-40) Alkaline Phosphatase 78 U/L (46-116) B-Type Natriuretic Peptide 4.54 pg/mL (0-100) Total Protein 6.9 g/dL (5.7-8.2) Albumin 4.2 g/dL (3.2-4.8) Triglycerides Level 215 mg/dL (< 150) Cholesterol Level 165 mg/dL (< 200) LDL Cholesterol 105 mg/dL (< 100) HDL Cholesterol 38 mg/dL (40-59) Troponin I High Sensitivity 13 ng/L (</=54) Lactic Acid Level 1.7 mmol/L (0.4-2.0) Other Laboratory Tests 12/26/24 05:00 Brief Hx & Hospital Course: The patient is a 29-year-old male who presented to the emergency department with complaints of chest pain. He was evaluated by cardiology, and serial troponins were negative, ruling out acute coronary syndrome. A chest X-ray revealed a mild opacity in the right upper lobe, which may represent residual changes from a recent viral infection. An echocardiogram was performed and showed normal cardiac function with an ejection fraction of 62%. The patient remained hemodynamically stable and free of chest pain during his hospital stay. He was cleared by cardiology and deemed medically stable for discharge. The etiology of his symptoms is most consistent with a resolving viral syndrome. The patient was prescribed a Z-Vijay (azithromycin) to address any possible atypical respiratory infection. He was instructed to follow up with his primary care provider within one week for reassessment and further management. At the time of discharge, the patient was stable, ambulatory, and reported no further chest pain or shortness of breath. Condition at Discharge: Fair Final Diagnosis/Problems List 1. Atypical chest pain Monitor, cardiology consult, trend troponin echocardiogram 2. Upper viral syndrome Monitor, IV abx 3. Morbid Obesity Discharge Disposition: Home Discharge Instruct/Medications Diet: Cardiac 2g Na,low cholest Activity: No Restrictions, As Tolerated Follow Up/Referral: pcp within 1 week Scheduled Doxycycline Hyclate (Doxycycline Hyclate), 1 TAB PO BID Scheduled PRN Acetaminophen (Acetaminophen), 500 MG PO DAILY PRN for MILD PAIN, (Reported) Miscellaneous Medications Cetirizine Hcl (Zyrtec Allergy), 10 MG PO, (Reported) Discharge Statement: "Patient was advised to return to the ER or call 911 if any headaches, dizziness, shortness of breath, chest pain, abdominal pain, bleeding, fevers, or worsening of medical condition. Patient was counseled about treatment plan, medications, possible side effects, patientverbalized understanding. All questions were answered to the best of my ability. This discharge took greater then 30 minutes in planning, reviewing documentation, counseling the patient, and discussing with other team members." ASSESSMENT ASSESSMENT Assessment 1. Atypical chest pain Monitor, cardiology consult, trend troponin echocardiogram 2. Upper viral syndrome Monitor, IV abx 3. Morbid Obesity GUSTABO PRICE [facility] Dec 27, 2024 11:26
== END 2024-12-27 16:20 | disposition home or self-care (01) | DRG 865 ==
LOC: ER 17:01 → OVERFLOW 20:12 → TELE-WESTW 12-26 21:35
PROVIDERS: ADMIT Nurse Practitioner; ATTEND Nurse Practitioner
DX: B34.9 Viral infection, unspecified (principal); J18.9 Pneumonia, unspecified organism; E66.01 Morbid (severe) obesity due to excess calories; Z68.36 Body mass index [BMI] 36.0-36.9, adult; J30.2 Other seasonal allergic rhinitis
CPT/HCPCS: 36415; 71045; 80048; 80053; 80061; 83605; 83880; 84484; 85025; 87040; 93005; 93306; G0378; J0692; J1885; J2470